=== PATIENT | female | born 1970 | race Caucasian/White ===

== ENCOUNTER 2016-12-28 08:10 | Emergency (ER) | payer BC, MEDICARE ==
--- NOTE | ~2016-12-28 | EKG ---
PATIENT: GABINO CRUZ UNIT #: [id number] Ventricular Rate: 101 BPM Atrial Rate: 101 BPM P-R Interval: 154 ms QRS Duration: 90 ms Q-T Interval: 338 ms QTC Calculation(Bezet): 438 ms P [place]: 59 degrees Calculated R [place]: 12 degrees Calculated T [place]: 34 degrees Diagnosis Line: Sinus tachycardia Diagnosis Line: Otherwise normal ECG Diagnosis Line: When compared with ECG of 22-APR-2014 21:25, Diagnosis Line: No significant change was found Diagnosis Line: Confirmed by PAVEL LAIRD MD ([id number]) on Diagnosis Line: 12/30/2016 3:16:19 PM INTERPRETING MD: EITAN SENIOR
--- NOTE | ~2016-12-28 | CR63 ---
[facility] A Service of [facility] & [facility] RADIOLOGY TEXT RESULTS PATIENT: GABINO CRUZ LOCATION: [facility] : 70 UNIT #: [id number] AGE: [address]: Tiarra Graves SEX: F ORDER DR: [id number] [facility] [address] [place], [place] [address] [id number] E MR#: [id number] Acc #: [id number] NAME: GABINO CRUZ : 1970 SEX: F STUDY DATE/TIME: 12/28/2016 9:48 UNIT: [facility] ROOM: STUDY DESCRIPTION: CR Chest 2 View Attending Physician: Tiarra Graves P.A.-C. Ordering Physician: Tiarra Graves P.A.-C. Primary Care Physician: Arely Cary M.D. MEDICAL IMAGING REPORT This report is preliminary unless electronic signature is present EXAM PA and lateral chest INDICATION Shortness of breath today. COMPARISON 04/22/2014 FINDINGS Low-volume inspiration with bibasilar atelectasis. Heart size stable. Degenerative changes of the thoracic spine. IMPRESSION Low-volume inspiration with bibasilar atelectasis. Dictated by... Nash Mcdaniels M.D. THIS IS AN ELECTRONICALLY VERIFIED REPORT Nash Mcdaniels M.D. at 12/29/2016 12:34 PM MIKE/gila TD: 12/28/2016 11:03 JOB #: [id number] MEDICAL IMAGING REPORT Page 1 of 1 COPY
--- NOTE | ~2016-12-28 | CT16 ---
[facility] A Service of [facility] RADIOLOGY TEXT RESULTS PATIENT: GABINO CRUZ LOCATION: [facility] : 70 UNIT #: [id number] AGE: [address]: Tiarra Graves SEX: F ORDER DR: [id number] [facility] [place], [place] [address] [id number] E MR#: [id number] Acc #: [id number] NAME: GABINO CRUZ : 1970 SEX: F STUDY DATE/TIME: 12/28/2016 11:20 UNIT: [facility] ROOM: STUDY DESCRIPTION: CT Angio Chest for PE Attending Physician: Tiarra Graves P.A.-C. Ordering Physician: Tiarra Graves P.A.-C. Primary Care Physician: Arely Cary M.D. MEDICAL IMAGING REPORT This report is preliminary unless electronic signature is present EXAM Chest CT chest with contrast, PE protocol INDICATION Shortness of breath, left-sided chest pain for 2 days. Elevated D-dimer. TECHNIQUE CT of the chest was performed following administration of IV contrast. Coronal and sagittal reformatted images were obtained. Pulmonary embolism protocol. This CT exam was performed with one or more of the following radiation dose reduction techniques: automatic exposure control, adjustment of mA and/or kV according to patient size, and iterative reconstruction. COMPARISON No comparisons. FINDINGS There is no evidence of pulmonary embolism. There is no lymphadenopathy or pleural effusion. There is linear scarring or atelectasis in the lung bases. There is no airspace consolidation or suspicious pulmonary nodule. Limited imaging of the upper abdomen is unremarkable. Bone windows are unremarkable. IMPRESSION No evidence of pulmonary embolism. No acute finding. Dictated by... Nash Mcdaniels M.D. [facility] A Service of [facility] RADIOLOGY TEXT RESULTS PATIENT: GABINO CRUZ LOCATION: [facility] : 70 UNIT #: [id number] AGE: [address]: Tiarra Graves SEX: F ORDER DR: THIS IS AN ELECTRONICALLY VERIFIED REPORT Nash Mcdaniels M.D. at 12/29/2016 12:35 PM Barry TD: 12/28/2016 12:24 JOB #: [id number] MEDICAL IMAGING REPORT Page 1 of 1 COPY
--- NOTE | ~2016-12-28 | CT4 ---
[facility] A Service of [facility] RADIOLOGY TEXT RESULTS PATIENT: GABINO CRUZ LOCATION: [facility] : 70 UNIT #: [id number] AGE: [address]: Tiarra Graves SEX: F ORDER DR: [id number] [facility] [address] [place], [place] [address] [id number] E MR#: [id number] Acc #: [id number] NAME: GABINO CRUZ : 1970 SEX: F STUDY DATE/TIME: 12/28/2016 12:31 UNIT: [facility] ROOM: STUDY DESCRIPTION: CT Abd and Pelv Wo Cont Attending Physician: Tiarra Graves P.A.-C. Ordering Physician: Tiarra Graves P.A.-C. Primary Care Physician: Arely Cary M.D. MEDICAL IMAGING REPORT This report is preliminary unless electronic signature is present EXAM CT of the abdomen and pelvis, 12/28 HISTORY Left flank pain for the last 2 days. TECHNIQUE Axial images were obtained through the abdomen and pelvis without contrast. Multiplanar reformats were obtained. This CT exam was performed with one or more of the following radiation dose reduction techniques: automatic exposure control, adjustment of mA and/or kV according to patient size, and iterative reconstruction. COMPARISON No comparison abdomen and pelvis CT. FINDINGS ABDOMEN: There is some mild atelectasis in the lung bases. The gallbladder is surgically absent. There is no biliary obstruction. There is excreted IV contrast in the left kidney from the prior chest CTA today. There is compensatory hypertrophy of the left kidney. It is otherwise normal. The right kidney is completely atrophic. There is mild splenomegaly. The spleen has an AP dimension of 16.0 cm. The solid organs are otherwise normal. No free fluid or adenopathy is seen. The unopacified GI tract is normal. PELVIS: The appendix is normal. The remainder of the unopacified GI tract is normal as well. Uterus is surgically absent. Urinary bladder is nearly completely decompressed. It does contain some excreted IV [facility] A Service of [facility] RADIOLOGY TEXT RESULTS PATIENT: GABINO CRUZ [id number] [birth year] UNIT #: [id number] AGE: [address]: Tiarra Graves SEX: F ORDER DR: contrast. No free fluid is seen. IMPRESSION 1. No acute findings in the abdomen or pelvis. 2. Normal unopacified GI tract, including the appendix. 3. Hysterectomy and cholecystectomy. 4. Splenomegaly. 5. Compensatory hypertrophy of the left kidney. The right kidney is completely atrophic. Dictated by... Rene Mena Jr., M.D. THIS IS AN ELECTRONICALLY VERIFIED REPORT Rene Mena Jr., M.D. at 12/29/2016 8:45 PM DYLON/gila TD: 12/28/2016 13:27 JOB #: [id number] MEDICAL IMAGING REPORT Page 1 of 1 COPY
[~2016-12-28 08:10] MED LIST: CYMBALTA PO; ENABLEX15 MG PO; PREDNISONE10 MG/DOSE PO; VALTREX PO; [UNRECOGNIZED DRUG - OTHER] OU
[2016-12-28 09:05] LABS: URINE SOURCE CLEAN CATCH
[2016-12-28 09:11] LABS: URINE APPEARANCE CLEAR; URINE BILIRUBIN NEG (NEG); URINE BLOOD 1+ (NEG); URINE COLOR YELLOW; URINE GLUCOSE NEG (NEG); URINE KETONE NEG (NEG); URINE LEUKOCYTE ESTERASE TRACE (NEG); URINE NITRATE NEG (NEG); URINE PROTEIN NEG (NEG); URINE SPECIFIC GRAVITY 1.007 (1.003-1.035)
[2016-12-28 09:14] LABS: URINE BACTERIA AUWI NEG (NEGATIVE); URINE SQUAMOUS EPITHELIAL CELL OCC /[HPF]
[2016-12-28 09:15] LABS: CULTURE INDICATED? NO
[2016-12-28 09:52] LABS: POC - CKMB <1.0 ng/mL (0.0-7.9); POC - TROPONIN <0.05 ng/mL (<=0.05)
[2016-12-28 10:17] LABS: BASOPHIL% 0.4 % (0-2.5); DIFF IND YES; EOSINOPHIL% 0.6 % (0.0-7.0); HEMATOCRIT 39.2 % (35.0-45.0); HEMOGLOBIN 12.8 gm/dL (12.0-16.0); LYMPHOCYTE# 2.5 X10e3 (1.0-3.5); LYMPHOCYTE% 54.3 % (17.0-45.0); MEAN CELL VOLUME 84.3 FL (83-96); MEAN CORPUSCULAR HEMOGLOBIN 27.6 PG (28-34); MEAN CORPUSCULAR HGB CONC 32.8 g/dL (30-36); MEAN PLATELET VOLUME 7.7 FL (6.5-11.5); MONOCYTE# 0.4 X10e3 (0-1.0); MONOCYTE% 7.9 % (3.0-12.0); NEUTROPHIL# 1.7 X10e3 (1.5-7.1); NEUTROPHIL% 36.8 % (40-75); PLATELET COUNT 117 X10e3 (140-420); RED BLOOD COUNT 4.65 X10e (3.90-5.30); RED CELL DISTRIBUTION WIDTH 14.6 % (11.0-15.5); WHITE BLOOD COUNT 4.5 X10e3 (4.0-10.5)
[2016-12-28 10:31] LABS: PLATELET ESTIMATE NORMAL (NORMAL)
[2016-12-28 10:32] LABS: RBC NORMAL YES
[2016-12-28 10:33] LABS: ALBUMIN SERUM 3.2 g/dL (3.5-5.0); BILIRUBIN, DIRECT 0.4 mg/dL (0.0-0.2); BILIRUBIN,INDIRECT 0.7 mg/dL (0.0-0.9); BILIRUBIN,TOTAL 1.1 mg/dL (0.2-2.0); CALCIUM SERUM 8.2 mg/dL (8.4-10.2); GLOM FILT RATE Estimated 67.5 mL/min (>60); POTASSIUM 3.4 mmol/L (3.5-5.1); PROTEIN TOTAL SERUM 7.1 g/dL (6.0-8.3)
== END 2016-12-28 13:50 | disposition home or self-care (01) ==
LOC: CED 08:10
PROVIDERS: Physician Assistant
DX: R74.0 Nonspecific elevation of levels of transaminase and lactic acid dehydrogenase [LDH] (principal); I10 Essential (primary) hypertension; Z90.49 Acquired absence of other specified parts of digestive tract; Z90.710 Acquired absence of both cervix and uterus; Z88.0 Allergy status to penicillin; Z88.2 Allergy status to sulfonamides
CPT/HCPCS: 36415; 71020; 71275; 74176; 80048; 80076; 81003; 82553; 83690; 84484; 85025; 85379; 86618; 93005; 96361; 96374; 99284; J1885; Q9967